=== PATIENT | female | born 1970 | race Hispanic/Latino ===

== ENCOUNTER 2016-08-02 08:54 | Day surgery (SDC) | payer OTHER ==
[~2016-08-02 08:54] MED LIST: RINGERS SOLUTION,LACTATED 1,000 ML IV PRN
--- OUTSIDE RECORDS SUMMARY | 2016-08-02 08:58 | XMS REPORT | Continuity of Care Document ---
:1970 Author Organization [facility] ([facility]) Address [address] [place] [address] Phone [phone] Care Team Providers Name Role Phone Unavailable Primary Care Provider Unavailable Source Comments This disclosure is being made pursuant to the Care Everywhere program, applicable federal and state laws, and may not contain all informaitonavailable regarding this patient.[facility] ([facility]) Active Allergies and Adverse Reactions Not on File Current Medications Not on file Active Problems Not on file Social History Tobacco Use Types Packs/Day Years Used Date Never Assessed Plan of Care Health Maintenance Due Date Last Done Comments Hepatitis B Vaccine (1 of 3 - Primary Series) 1970 Tdap Vaccine 1980 Lipid Disorder Screening 1987 MMR Vaccine 1987 Td Vaccine 1987 Cervical Cancer Screening 1999 Mammogram 2009 Influenza Vaccine: Seasonal (#1) 12/21/2015 Results from Last 3 Months Not on file
[2016-08-02] MEDS ORDERED: RINGERS SOLUTION,LACTATED 1,000 ML IV ONE (09:15)
[2016-08-02 09:22] LABS: Hemoglobin 14.4 gm/dL (12.5-16.0); Mean Cell Volume 90.9 fl (78-100); Mean Corpuscular Hemoglobin 30.4 pg (27-31); Mean Corpuscular Hgb Conc 33.5 g/dl (32-36); Mean Platelet Volume 9.2 fl (6.0-9.5); Neutrophil # 3.9 K/mm3 (1.3-6.0); Neutrophil % 56.2 % (42-75.0); Platelet Count 243 K/mm3 (150-450); Red Blood Count 4.73 M/mm3 (4.2-5.4); Red Cell Distribution Width 12.8 % (11.5-14.0); White Blood Count 6.9 K/mm3 (4.0-10.5)
[2016-08-02] MEDS ORDERED: oxyCODONE HCL/ACETAMINOPHEN 1 TAB TABLET PO PRN (11:03)
[2016-08-02] MEDS ORDERED: IBUPROFEN 600 MG TABLET PO PRN (11:04)
--- NOTE | 2016-08-02 12:04 | OR ---
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 Anesthesia: David Torres LABORER PIPELINE, IV sedation Findings: 20x8 mm loop and 15 x 15 mm loop Fluids: 400 ml EBL: Minimal Drains: None Pathology: LEEP specimen Complications: None Condition: Stable Procedure: The patient was taken to the operating room with IV fluids running. She was placed in dorsal lithotomy position. She was prepped and draped in the normal sterile fashion. A coated bivalve speculum was placed into the vagina. The cervix was visualized with the findings noted above. LEEP was performed with 20 x 8 mm loop and a deeper endocervial specimen with a 15 x 15 mm loop. The entire area was cauterized with rollerball Bovie cautery. The area was hemostatic. The patient tolerated the procedure well. Sponge counts were correct x 2. She was taken to ambulatory in stable condition.
[2016-08-02 12:22] VITALS: BP 124/68
== END 2016-08-02 08:55 | disposition home or self-care (01) ==
LOC: AMB 08:54
PROVIDERS: ATTEND Obstetrics & Gynecology
PROC: 0UBC7ZX Excision of Cervix, Via Natural or Artificial Opening, Diagnostic (ICD-10-PCS; principal; 2016-08-02 10:00)
DX: D06.9 Carcinoma in situ of cervix, unspecified (principal); J45.909 Unspecified asthma, uncomplicated; F41.9 Anxiety disorder, unspecified; F32.9 Major depressive disorder, single episode, unspecified; Z68.37 Body mass index [BMI] 37.0-37.9, adult